=== PATIENT | female | born 2000 | race Caucasian/White ===

== ENCOUNTER 2023-05-28 11:16 | Emergency (ER) | payer BC, SELFPAY ==
[2023-05-28] VITALS (10 sets, daily range): BP systolic 114–143; BP diastolic 64–77; PULSE 61–89; RESP 12–20; TEMP 36.3; O2SAT 91–100
--- NOTE | ~2023-05-28 | US_ITS ---
EXAMINATION: US pelvic complete w TV DATE: 05/28/2023 14:01 INDICATION: Irregular vaginal bleeding. Left lower quadrant abdominal pain. TECHNIQUE: Multiple transabdominal and endovaginal sonographic images of the pelvis were obtained. COMPARISON: None. FINDINGS: The uterus measures 8.2 x 3.9 x 4.4 cm. The endometrial complex measures 4 mm in thickness. There is asymmetric thickening and heterogeneous echogenicity of the posterior wall the uterus at the fundus relative to the anterior wall without a discrete peripheral margin to more specifically suggest a [place] rine fibroid. There also appears to be some hypoechoic striations extending to the hypoechoic subendo metrial myometrium. Findings can be seen in the setting of adenomyosis. The right ovary measures 3.4 x 2.6 x 2.5 cm. And contains a 2.7 x 2.5 x 1.6 cm anechoic cyst/follicle. The left ovary measures 2.2 x 1.8 x 1.1 cm. Vascular flow identified at both ovaries on color Doppler. There is no free fluid i n the pelvis. IMPRESSION: 1. Relatively thickened and heterogeneous myometrium at the posterior fundus with a few hyperechoic s triations in the subendometrial myometrium and would favor focal adenomyosis over uterine fibroid. If clinically indicated, pre and postcontrast MRI could be obtained for further evaluation. Reviewed, dictated and finalized at location A. IMPRESSION: 1. Relatively thickened and heterogeneous myometrium at the posterior fundus wi th a few hyperechoic striations in the subendometrial myometrium and would favo r focal adenomyosis over uterine fibroid. If clinically indicated, pre and post contrast MRI could be obtained for further evaluation.
[2023-05-28 11:51] LABS: Basophils Percent Auto 0.3 % (0.2-1.2); Eosinophils Absolute Auto 0.1 K/mm3 (0-0.3); Eosinophils Percent Auto 0.9 % (0-4.4); Immature Granulocyte Absolute 0.02 K/mm3 (0.00-0.031); Immature Granulocyte Percent A 0.2 % (0-0.5); Lymphocytes Absolute Auto 2.82 K/mm3 (0.9-3.2); Lymphocytes Percent Auto 32.2 % (18.3-44.2); Mean Corpuscular HGB Conc 32.6 g/dl (32-36); Mean Corpuscular Hemoglobin 28.7 pg (26-34); Mean Corpuscular Volume 88.3 fl (80-100); Monocytes Absolute Auto 0.7 K/mm3 (0.1-0.6); Monocytes Percent Auto 8.3 % (2.6-8.5); Neutrophils Absolute Auto 5.1 K/mm3 (1.3-6.7); Neutrophils Percent Auto 58.1 % (45.5-73.1); Platelet Count Result 378 k/mm3 (150-375); Red Blood Count 4.87 M/mm3 (4.2-5.4); Red Cell Distribution Width 13.1 % (11.5-14.5); White Blood Count 8.8 K/mm3 (4.5-10.0)
[2023-05-28 12:00] LABS: Alanine Aminotransferase 25 U/L (6-35); Albumin Level 4.7 g/dL (3.5-5.1); Alkaline Phosphatase 25 U/L (38-126); Anion Gap 7 mmol/L (8-16); Aspartate Amino Transferase 27 U/L (14-36); Bilirubin,Total 0.5 mg/dL (0.2-1.3); Blood Urea Nitrogen 7 mg/dL (7-17); Calcium 9.4 mg/dL (8.4-10.2); Carbon Dioxide 24 mmol/L (22-30); Chloride 107 mmol/L (98-107); Estimated CRCL calculation 112 ml/min; Estimated Glomerular Filt Rate > 60; Glucose 108 mg/dL (65-110); Lipase 72 U/L (23-300); Potassium 3.9 mmol/L (3.4-5.0); Sodium 138 mmol/L (137-145)
--- NOTE | 2023-05-28 12:05 | ED.ABDPAIN ---
HPI - Abdominal Pain General Chief Complaint: Abdominal Pain Stated Complaint: pelvic pain, abnormal bleeding Time Seen by Provider: 05/28/23 11:48 History of Present Illness HPI narrative: 22-year-old female with a history of POTS, dysmenorrhea and irregular periods reports for evaluation for ovary pain , and irregular periods. Patient states she is on Slynd control pill and takes it daily as directed. States she was scheduled for her control pack to have her menstrual cycle on 05/19/23-05/24/2023. Patient states she started spotting on 05/19 for 2 days. Then her period stopped and she started bleeding heavily on 05/24/23 to 05/27/23 with associated LLQ pain and nausea. 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 Hinojosa's office and was advised to come to the ED for further evaluation given persistent left lower quadrant pain. She denies vaginal lesions or rashes, abnormal vaginal discharge or concern for STDs. Denies urinary complaints including dysuria, hematuria, urinary frequency or urgency. Denies fever or vomiting, denies diarrhea. She does report persistent nausea that seems to be getting worse. She states while her period is heavy, she was changing her pad once every 2 hours. She denies syncope, chest pain or shortness of breath. She does report fatigue and lightheadedness which she is unsure if this is related to her POTS or to her menstrual cycle. Related Data Home Medications Medication Instructions Recorded Confirmed vitamin B complex (B 1 tablet PO DAILY 01/01/21 01/01/21 Complex-Vitamin B12 tablet) azelastine 137 mcg (0.1 %) nasal 137 mcg intranasal Q12H 12/05/22 spray aerosol buspirone 10 mg tablet 30 mg PO BID 12/05/22 cholecalciferol (vitamin D3) 50 50 mcg PO DAILY 12/05/22 mcg (2,000 unit) capsule clonazepam 0.5 mg tablet 0.5 mg PO DAILY PRN 12/05/22 fluticasone furoate 50 inhalation 12/05/22 mcg/actuation blister powder for inhalation magnesium 250 mg tablet 250 mg PO DAILY 12/05/22 metoprolol succinate 25 mg 25 mg PO DAILY 12/05/22 tablet,extended release 24 hr montelukast 10 mg tablet 10 mg PO DAILY 12/05/22 Allergies Allergy/AdvReac Type Severity Reaction Status Date / Time adhesive Allergy Unknown Rash Verified 05/28/23 11:17 diphenhydramine Allergy Unknown Dizziness Verified 05/28/23 11:17 Review of Systems Review of Systems: CONSTITUTIONAL: Denies fever, chills EYES: Denies visual changes, redness, or discharge. ENT: Denies rhinorrhea, congestion, sore throat, or otalgia. CARDIOVASCULAR: Denies chest pain, palpitations, or edema. RESPIRATORY: Denies cough or dyspnea. GASTROINTESTINAL: See HPI GENITOURINARY: See HPI SKIN: Denies rash or itching. MUSCULOSKELETAL: Denies back pain, joint pain, or myalgia. NEUROLOGIC: Denies headache, numbness, dizziness, or weakness. PSYCHIATRIC: Denies anxiety or depression. [facility] Past Medical History Medical History Anxiety POTS (postural orthostatic tachycardia syndrome) Surgical History Surgical History H/O adenoidectomy Hx of tonsillectomy [place] teeth removed Family History Family History Mother Diabetes mellitus Hypertension Grandparent Diabetes mellitus Family history of malignant neoplasm of breast in first degree relative Social History Social History Smoking status: Never smoker Second hand tobacco smoke exposure: No Alcohol intake: never Substance use: never Lack of Transportation: No Lack of Food: Never True Current Housing: I Have Housing Concerned About Future Housing: No Difficulty Paying Gas/Electric Bills: No Difficulty Paying for Meds: No Currently Unemployed: No Education: High School Diploma/GED
[2023-05-28] MEDS: KETOROLAC 30 MG/ML VIAL (*BKC) IV PUSH (12:10)
[2023-05-28] MEDS: ONDANSETRON INJ 4 MG/2 ML VIAL IV PUSH (12:10)
[2023-05-28] MEDS: SODIUM CHLORIDE 0.9% IV 1,000 ML 999 ML IV CONT (12:10)
[2023-05-28 12:11] LABS: Appearance Urine Cloudy (Clear); Bacteria Urine None Seen /hpf; Bilirubin Urine Negative (Negative); Blood Urine Negative (Negative); Color Urine Yellow (Yellow); Glucose Urine UA Negative (Negative); Ketones Urine Negative (Negative); Leukocyte Esterase Ur Negative LEU/UL (Negative); Nitrate Urine Negative (Negative); Non Pathogenic Casts 0-2; Protein Urine Negative (Negative); RBC Urine 0-2 /hpf (0-2); Specific Grav Ur 1.018 (1.001-1.035); Squamous Epithelial Cell Urine Occasional /hpf (Few); Urobilinogen Urine 0.2 mg/dL (<2.0); WBC Urine 0-5 /hpf; pH Urine >=9.0 (5.0-9.0)
[2023-05-28 12:20] LABS: Add Urine Microscopic? YES
== END 2023-05-28 15:14 | disposition home or self-care (01) ==
PROVIDERS: Family Medicine; Emergency Provider Physician Assistant
DX: R10.32 Left lower quadrant pain (principal); F41.9 Anxiety disorder, unspecified; G90.A Postural orthostatic tachycardia syndrome [POTS]; R93.89 Abnormal findings on diagnostic imaging of other specified body structures
CPT/HCPCS: 36415; 76830; 76856; 80053; 81001; 81025; 83690; 85025; 96361; 96374; 96375; 99284; J1885; J2405; J7030

== ENCOUNTER → 2023-06-12 09:40 | Outpatient (CLI) | payer BC, SELFPAY ==
--- NOTE | ~2023-06-12 | MR_ITS ---
EXAMINATION: MR pelvis wo/w con DATE: 06/12/2023 10:49 INDICATION: Left lower quadrant abdominal pain. TECHNIQUE: Magnetic resonance imaging (MRI) of the pelvis was performed without intravenous contrast. Full-field sequences of the pelvis included axial and coronal T2-weighted SS FSE, coronal 2D FIESTA, axial T1-weighted FSPGR, axial dual-echo T1-weighted FSPGR and axial T1 weighted LAVA. Small field of view sequences included axial, sagittal and coronal T2-weighted FSE centered on the uterus and adn exa. Postcontrast sequences included a time course axial T1-weighted LAVA with full-field of view of the pelvis. COMPARISON: Ultrasound dated 05/28/2023 FINDINGS: Anteverted uterus with 3 mm thick T2 hyperintense endometrial complex and <5-6 mm T2 hypointense junc tional zone throughout, both of which are normal. Normal homogeneous myometrial enhancement at the ut erus with no uterine fibroids. 1.5 cm dominant right ovarian follicle with a few additional subcentim eter follicles in both ovaries. Bladder is normal. Visualized portions of bowels are unremarkable. No free fluid in the pelvis. No pathologically enlarged pelvic or inguinal lymphadenopathy. Bones are u nremarkable with normal marrow signal throughout. IMPRESSION: 1. Normal pelvic MRI with normal anteverted uterus. No evident uterine adenomyosis or fibroids. Reviewed, dictated and finalized at location A. [facility]E [facility]ASER IMPRESSION: 1. Normal pelvic MRI with normal anteverted uterus. No evident uterine adenomyo sis or fibroids.
== END ==
PROVIDERS: PCP Internal Medicine; Visit Provider Obstetrics & Gynecology
DX: R10.32 Left lower quadrant pain (principal); N80.03 Adenomyosis of the uterus
CPT/HCPCS: 72197; A9577

== ENCOUNTER 2023-10-21 03:21 | Day surgery (SDC) | payer BC, SELFPAY ==
[2023-10-14 12:18] VITALS: BMI 33.5
--- NOTE | 2023-10-14 12:26 | PC.NURSE ---
Report to the Outpatient Waiting Room, entrance under the green pavilion located off [facility], at time 0600 on date 10/21/23. Planned Procedure Time: 0730. Time changes happen often and if your time is changed the preop area will call you the afternoon before. - You and your visitor will be asked to self-screen and do not enter if you have any COVID symptoms. - A mask is optional within the hospital at this time. Patients may have clear liquids (water, carbonated beverages, clear teas, apple juice) until 3 hours prior to surgery with a maximum of 20 ounces. - No food from midnight until time of surgery Take the following medications with a SIP of water the morning of surgery: BUSPIRONE, METOPROLOL, CLONAZEPAM IF NEEDED DO NOT STOP ANY OF YOUR OTHER PRESCRIPTION MEDICATIONS PRIOR TO SURGERY ?EXCEPT THE FOLLOWING Medications to discontinue per physician: VITAMINS Date to take last dose: 10/17/23 Please no make-up, nail malawian, hairspray, perfume, deodorant, or body powder the day of surgery. No jewelry (including any body piercings) or valuables the day of surgery, leave them at home. Please take a shower or bath the night before, or the morning of, surgery with an antibacterial soap. Wear comfortable, loose fitting clothing. - Jewelry must be removed prior to entering the operating room. Rings and piercings that are not removed may be cut off. - The hospital will not accept responsibility for valuables. - Please leave all valuables, including medications, at home the day of surgery. If you are going home after surgery, a licensed school boat driver must drive you home. - NO public transportation without another adult if you receive anesthesia. - We recommend that an adult stay with you for 24 hours following discharge. - We also recommend that you do not drive, make important decision, drink alcoholic beverages, or take any drugs that were not prescribed by your health care provider for at least 24 hours after your discharge time. Follow any additional instructions given to you from your surgeon. If you or anyone in your household have experienced Covid symptoms in the past week, please notify your surgeon or the nurse liaison at the phone number below for possible testing. Telephone instructions given to PT - TOM and asked if any additional questions and then verbalized understanding. Patient advised to call surgeon office or pre surgery nurse liaison [phone] if any additional questions.
--- NOTE | 2023-10-20 15:46 | PM.IMHP ---
H&P: HPI History of Present Illness Date/Time: 10/20/23 15:46 Chief Complaint: Pelvic pain Narrative: 23 y/o Go with history of dysmenorrhea, severe since menarche. Pain not satisfactorily relieved with hormonal options of Slynd or Nexplanon. She has had a pelvic ultrasound and pelvic MRI. No concerns on the MRI. The pain can affect her activities. She was given option of [place] versus laparoscopy. She has opted for the laparoscopy. Review of Systems Review of Systems: All systems reviewed & are unremarkable except as noted in HPI and below Constitutional: Constitutional: Reports no additional constitutional complaints Eyes: Eyes: Reports no additional eye complaints Cardiovascular: Cardiovascular: Reports no additional cardiovascular complaints Respiratory: Respiratory: Reports no additional respiratory complaints Gastrointestinal: Gastrointestinal: Reports no additional gastrointestinal complaints Genitourinary: Genitourinary: Reports no additional female genitourinary complaints and Reports as per HPI Integumentary/Breasts: Skin/Breast: Reports system reviewed and no additional complaints, except as docu Neurologic: Reports system reviewed and no additional complaints, except as documented Psychiatric: Psychiatric: Reports no additional psychiatric complaints Hematologic/Lymphatic: Hematologic/Lymphatic: Reports no additional hematologic/lymphatic complaints PMFSH Past Medical History Medical History Anxiety Hx of MTHFR mutation POTS (postural orthostatic tachycardia syndrome) Surgical History Surgical History H/O adenoidectomy Hx of tonsillectomy [place] teeth removed Family History Family History Mother Diabetes mellitus Hypertension Grandparent Diabetes mellitus Family history of malignant neoplasm of breast in first degree relative Social History Social History Smoking status: Never smoker Second hand tobacco smoke exposure: No Alcohol intake: current Drinks per week: 3 Substance use: never Substance use type: does not use Lack of Transportation: No Lack of Food: Never True Current Housing: I Have Housing Concerned About Future Housing: No Difficulty Paying Gas/Electric Bills: No Difficulty Paying for Meds: No Currently Unemployed: No Education: High School Diploma/GED Difficulty w/ Childcare or Family Care: No Living arrangements: with family Occupation/Education: student Additional occupation/education comments: 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 [employer] Gender identity (if verbalized by the patient): Female Sexual Orientation (if Verbalized by the Patient): Straight or Heterosexual Spiritual care concerns: No Meds Home Medications and Allergies Home Medications Medication Instructions Recorded Confirmed Type vitamin B complex (B 1 tablet PO DAILY 01/01/21 10/14/23 History Complex-Vitamin B12 tablet) azelastine 137 mcg (0.1 %) nasal 137 mcg intranasal Q12H 12/05/22 10/14/23 History spray aerosol buspirone 10 mg tablet 30 mg PO BID 12/05/22 10/14/23 History cholecalciferol (vitamin D3) 50 50 mcg PO DAILY 12/05/22 10/14/23 History mcg (2,000 unit) capsule clonazepam 0.5 mg tablet 0.5 mg PO DAILY PRN Anxiety 12/05/22 10/14/23 History magnesium 250 mg tablet 250 mg PO DAILY 12/05/22 10/14/23 History metoprolol succinate 25 mg 25 mg PO DAILY 12/05/22 10/14/23 History tablet,extended release 24 hr montelukast 10 mg tablet 10 mg PO DAILY 12/05/22 10/14/23 History fluticasone propionate 50 1 spray intranasal DAILY PRN 10/14/23 10/14/23 History mcg/actuation nasal Allergy Symptoms spray,suspension Allergies Allergy/AdvReac Type Severity Reaction Status Date / Time adhesive Allergy Unknown Rash Verified 10/14/23 12:16
[2023-10-21] VITALS (9 sets, daily range): BP systolic 108–129; BP diastolic 62–76; PULSE 61–80; RESP 14–18; TEMP 36.1–36.4; O2SAT 96–100
[2023-10-21] MEDS: LACTATED RINGERS 1,000 ML 30 ML IV CONT (06:40)
[2023-10-21] MEDS: KETOROLAC 15 MG/ML VIAL (*BKC) IV PUSH (06:44)
[2023-10-21] MEDS: ACETAMINOPHEN 500 MG TABLET 1000 MG PO (06:45)
[2023-10-21] MEDS: SCOPOLAMINE 1 MG PATCH 1 PATCH TRANSDERM (06:46)
--- NOTE | 2023-10-21 06:54 | WPDANESEPPF ---
Anes - Initial Pre Proc Eval Procedure: Operation Date: 10/21/23 07:30 Proposed Procedures p Diagnostic Laparoscopy - Wlaly Bergeron MD Date/Time: 10/21/23 06:54 Surgeon: Wally Bergeron MD Pre Op Diagnosis: pelvic pain Patient Data Age: 23 Gender: F Height: 1.57 m Weight: 83 kg Allergies Allergy/AdvReac Type Severity Reaction Status Date / Time adhesive Allergy Unknown Rash Verified 10/14/23 12:16 diphenhydramine Allergy Unknown Dizziness Verified 10/14/23 12:16 Home Medications Medication Instructions Recorded Confirmed Type vitamin B complex (B 1 tablet PO DAILY 01/01/21 10/14/23 History Complex-Vitamin B12 tablet) azelastine 137 mcg (0.1 %) nasal 137 mcg intranasal Q12H 12/05/22 10/14/23 History spray aerosol buspirone 10 mg tablet 30 mg PO BID 12/05/22 10/14/23 History cholecalciferol (vitamin D3) 50 50 mcg PO DAILY 12/05/22 10/14/23 History mcg (2,000 unit) capsule clonazepam 0.5 mg tablet 0.5 mg PO DAILY PRN Anxiety 12/05/22 10/14/23 History magnesium 250 mg tablet 250 mg PO DAILY 12/05/22 10/14/23 History metoprolol succinate 25 mg 25 mg PO DAILY 12/05/22 10/14/23 History tablet,extended release 24 hr montelukast 10 mg tablet 10 mg PO DAILY 12/05/22 10/14/23 History fluticasone propionate 50 1 spray intranasal DAILY PRN 10/14/23 10/14/23 History mcg/actuation nasal Allergy Symptoms spray,suspension Patient hx anesthesia problems: none Family hx anesthesia problems: none Results Review: All pre-operative results and documents have been reviewed as part of the pre-operative evaluation. [facility] Past Medical History Medical History Anxiety Hx of MTHFR mutation POTS (postural orthostatic tachycardia syndrome) Surgical History Surgical History H/O adenoidectomy Hx of tonsillectomy [place] teeth removed Family History Family History Mother Diabetes mellitus Hypertension Grandparent Diabetes mellitus Family history of malignant neoplasm of breast in first degree relative Social History Social History Smoking status: Never smoker Second hand tobacco smoke exposure: No Alcohol intake: current Drinks per week: 3 Substance use: never Substance use type: does not use Lack of Transportation: No Lack of Food: Never True Current Housing: I Have Housing Concerned About Future Housing: No Difficulty Paying Gas/Electric Bills: No Difficulty Paying for Meds: No Currently Unemployed: No Education: High School Diploma/GED Difficulty w/ Childcare or Family Care: No Living arrangements: with family Occupation/Education: student Additional occupation/education comments: 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 [employer] Gender identity (if verbalized by the patient): Female Sexual Orientation (if Verbalized by the Patient): Straight or Heterosexual Spiritual care concerns: No Anes - Eval Final PreProcedure Day of Procedure 10/21/23 06:54 Patient weight: obese Heart: regular rate and rhythm Lungs: clear to auscultation Airway: Mallampati scale class II Neurological: alert and oriented Last oral intake: >/= 8 hours ASA classification: II Emergent: no Anesthetic plan: proceed Anesthesia type and monitoring: general ETT and standard monitoring Results Review: All pre-operative results and documents have been reviewed as part of the pre-operative evaluation. Informed Consent: The patient's anesthetic plan and its attendant risks and benefits were discussed with the patient/family/POA. Questions were solicited and answers provided to the satisfaction of the patient/family/POA.
--- NOTE | 2023-10-21 07:24 | WPDHPUPDATE1 ---
History and Physical Update Update Date/Time: 10/21/23 07:24 History and Physical has been reviewed, including an updated exam of the patient. There are NO changes in the patient's condition. Risks, benefits, and alternatives have been discussed and questions answered. Patient agrees to proceed with procedure.
[2023-10-21] MEDS: BUPivacaine HCL 0.5% PF 30 ML VIAL 10 ML INFILTRATE (08:00)
--- NOTE | 2023-10-21 08:16 | W.PM.PROC2 ---
Procedure Note - Detailed Date of Procedure 10/21/23 Pre-op Diagnosis pelvic pain Post-op Diagnosis Other (2. Endometriosis) Procedure Performed 1. Diagnostic laparoscopy 2. Destruction of endometriosis lesions and endometriosis biopsies Surgeon Wally Bergeron MD Anesthesia General Indications Chronic pelvic pain Findings Normal uterus fallopian tubes and ovaries endometriosis lesions dark on the anterior cul-de-sac right side and also on the right uterosacral area lesions removed completely there was a red lesion consistent endometriosis implant on her cecum. This was not biopsied. Appendix appeared normal. Description of Procedure After informed consent was obtained patient was taken to the operating room and adequate general endotracheal anesthesia was administered she was placed in low lithotomy position an exam under anesthesia was performed no adnexal masses palpated uterus mobile palpated normal size. Was prepped and draped in sterile fashion attention was turned to the vaginal area. A straight Garcia catheter was inserted and small amount of yellow urine obtained. With sterile gloves attention was turned to the abdomen and 0.5% Marcaine was injected subcutaneously at the infra umbilicus area. A horizontal incision was made with the scalpel the Veress needle was inserted into the abdomen confirmation into the abdomen obtained with normal free flow of fluid and normal peritoneal pressures. A pneumoperitoneum of 15 mm per mercury was obtained. A 5 mm port was inserted under laparoscopic visualization. Patient was placed in Trendelenburg position. Attention was turned to the left side of the abdomen and 0.5% Marcaine was injected subcutaneously and a small incision was made and a 5 mm port was inserted under laparoscopic visualization. The pelvis was visualized the areas of endometriosis implants were noted and using the biopsy instrument the small endometriosis implant at the right anterior cul-de-sac was removed completely and cauterized with the scissors attention was turned to the uterosacral area where another implant which was dark was removed and area cauterized for hemostasis. Hemostasis was noted at both sites. Patient was taken out of Trendelenburg position pneumoperitoneum released and skin incisions closed in a subcuticular fashion with 4-0 Vicryl. Patient was extubated in operating room and taken to recovery in stable condition. Estimated Blood Loss 5 Urine Output 20 Drains No Packing No Pathology Yes (Pelvic wall biopsies) Complications No immediate complications Condition Stable Disposition Same day [facility] Billing Surgery - Charge Forward: Surgery Billing
[2023-10-21] MEDS: fentaNYL CITRATE INJ (*CRX) 100 MCG/2 ML VIAL 25 MCG IV PUSH ×4 (08:45→09:09)
[2023-10-21] MEDS: oxyCODONE HCL (*CRX) 5 MG TAB IR PO (09:34)
== END 2023-10-21 10:25 | disposition home or self-care (01) ==
PROVIDERS: PCP Internal Medicine; Visit Provider Obstetrics & Gynecology
PROC: (CPT 49320; principal; 2023-10-21 07:30)
DX: N80.319 Endometriosis of the anterior cul-de-sac, unspecified depth (principal); N80.3C1 Endometriosis of the right uterosacral ligament, unspecified depth; N94.6 Dysmenorrhea, unspecified; G90.A Postural orthostatic tachycardia syndrome [POTS]; F41.9 Anxiety disorder, unspecified; E72.12 Methylenetetrahydrofolate reductase deficiency; E66.9 Obesity, unspecified; Z68.33 Body mass index [BMI] 33.0-33.9, adult
CPT/HCPCS: 58662; 88305; A9270; J1100; J1885; J2250; J2405; J2704; J3010; J7030; J7120

== ENCOUNTER 2024-01-07 12:59 | Outpatient (CLI) | payer BC, SELFPAY ==
--- NOTE | ~2024-01-07 | US_ITS ---
EXAMINATION: US pelvic complete w TV INDICATION: Pelvic pain. Irregular bleeding. Comparison:Ultrasound dated 05/28/2023 TECHNIQUE: Multiple transabdominal and endovaginal sonographic images of the pelvis performed. FINDINGS: The uterus measures 7.9 x 3.1 x 4 cm. The endometrial complex measures 3 mm. The right ovary measures 2.6 x 1.6 x 1.5 cm and the left ovary measures 1.5 x 1.2 x 1.4 cm. There ar e small follicles in each ovary. Normal doppler signal in both ovaries. There is no free fluid in the pelvis. There are no abnormal masses seen on either side. IMPRESSION: 1. Unremarkable pelvic ultrasound. Reviewed, dictated and finalized at location B.
== END 2024-01-07 13:00 ==
PROVIDERS: PCP Internal Medicine; Visit Provider Obstetrics & Gynecology
DX: R10.2 Pelvic and perineal pain (principal)
CPT/HCPCS: 76830; 76856